=== PATIENT | female | born 1950 | race Caucasian/White ===

== ENCOUNTER 2016-12-01 09:05 | Day surgery (SDC) | payer MEDICARE ==
[~2016-12-01] VITALS: Ht 172.7 cm; Wt 82.5 kg
[~2016-12-01 09:05] MED LIST: ASCO100T11 PO; CALC-467 PO; ESTR1TAB24 PO; LOVA10TA PO; MULT-1007 PO; OMEG1CAP25 PO; [UNRECOGNIZED DRUG - CODE] PO
[2016-12-01 09:41] VITALS: BP 134/76; PULSE 82; RESP 16; O2SAT 98
[2016-12-01] MEDS ORDERED: MONT10TA20 PO (09:41)
[2016-12-01] MEDS ORDERED: LEVO75TA4 PO (09:41)
[2016-12-01] MEDS ORDERED: ALBU8.5H2 INHALATION (09:54)
[2016-12-01] MEDS ORDERED: 0.9% Sodium Chloride 1,000 ML IV PRN (10:21)
[2016-12-01] MEDS ORDERED: Sodium Chloride LOK Flush 10 mL Syringe IV PRN (10:25)
[2016-12-01] MEDS ORDERED: fentaNYL-PF 50 mCg/mL 2 mL Inj IVPUSH PRN (10:25)
[2016-12-01 10:56] VITALS: BP 121/62; PULSE 65; RESP 16; O2SAT 99
[2016-12-01 11:09] VITALS: BP 119/66; PULSE 70; RESP 14; O2SAT 96
[2016-12-01 11:15] VITALS: BP 143/76; PULSE 68; RESP 14; O2SAT 100
--- NOTE | 2016-12-01 11:24 | ENDO ---
[address] [address] ENDOSCOPY PROCEDURE PATIENT: DENISE DENIS : 1950 MR#: [id number] ADMIT: 12/01/2016 JOB ID: [id number] DATE OF SERVICE: 12/01/2016 PROCEDURE PERFORMED: Colonoscopy. INDICATIONS: Screening. ASA CLASSIFICATION: The patient's ASA classification is II. MALLAMPATI SCORE: Mallampati score was 2. MEDICATIONS: 1. Versed 5 mg. 2. Fentanyl 100 mcg. INSTRUMENT USED: PCF-H180AL. PREPARATION QUALITY: Poor. PROCEDURE DETAILS: After informed consent was obtained, the patient was brought into the GI suite, where she was placed on oxygen via nasal cannula and monitored with continuous pulse oximeter, telemetry and blood pressure monitoring. A time-out was performed. Then, she was placed in the left lateral decubitus position and medications were administered for sedation. Digital rectal exam was performed which was unremarkable. The colonoscope was then inserted into the rectum and advanced under direct visualization to the cecum, which was identified by the presence of the ileocecal valve and appendiceal orifice. Once the cecum was reached, the colonoscope was withdrawn back into the rectum, as the mucosa and lumen were examined. In the rectum, retroflexion was performed. Following retroflexion, remaining air in the rectum was suctioned, and procedure was completed. FINDINGS: 1. There was semi-solid stool scattered throughout the entire colon. Upon suctioning, our suction channel did become clogged requiring irrigation of the suction channel. 2. In the cecum there was an approximately 5-mm, flat polyp that was removed with cold biopsy forceps. The colonoscope was then withdrawn back into the rectum as the mucosa and lumen were examined. Visualization was suboptimal secondary to the poor prep. 3. Retroflexed views in the rectum were unremarkable. IMPRESSION: 1. Cecal polyp. 2. Poor prep. RECOMMENDATIONS: Repeat colonoscopy with two day prep. COMPLICATIONS: None. ESTIMATED BLOOD LOSS: Less than 5 mL.
--- NOTE | 2016-12-05 13:32 | PATH ---
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 ICD10 D12.0 GROSS DESCRIPTION: The specimen is received in one formalin filled container labeled with the patient's name, sublabeled "cecal polyp x1" and consists of 3 portions of tissue which aggregate to 0.3 x 0.3 x 0.2 CM. The specimen is entirely submitted in one cassette. 12/01/2016 [facility] ICD-9 CODES: CPT CODES: 1: 62385 Electronically Signed Out Myke Gillette MD Merged With [facility] Pathology [facility], [place] [address] Technical component performed at [facility], [facility] [address], [place], [address]
== END 2016-12-01 23:59 | disposition home or self-care (01) ==
LOC: END 09:05
PROVIDERS: ATTEND Internal Medicine Gastroenterology
DX: Z12.11 Encounter for screening for malignant neoplasm of colon (principal); D12.0 Benign neoplasm of cecum; F17.210 Nicotine dependence, cigarettes, uncomplicated; Z79.899 Other long term (current) drug therapy
CPT/HCPCS: 45380; G0500; J2250; J7030

== ENCOUNTER 2017-01-06 12:38 | Day surgery (SDC) | payer MEDICARE ==
[~2017-01-06] VITALS: Ht 172.7 cm; Wt 81.7 kg
[~2017-01-06 12:38] MED LIST changes: +0.9% Sodium Chloride 1,000 ML IV SCH; +ALBU8.5H2 INHALATION; +LEVO75TA4 PO; +MONT10TA20 PO; +Sodium Chloride LOK Flush 10 mL Syringe IV PRN; +fentaNYL-PF 50 mCg/mL 2 mL Inj IVPUSH PRN
[2017-01-06] MEDS ORDERED: ATRV10T PO (13:34)
[2017-01-06] MEDS ORDERED: IRON18TA PO (13:34)
[2017-01-06 13:35] VITALS: BP 145/78; PULSE 71; RESP 16; O2SAT 99
[2017-01-06 14:51] VITALS: BP 121/64; PULSE 65; RESP 15; O2SAT 100
[2017-01-06 15:00] VITALS: BP 127/66; PULSE 62; RESP 15; O2SAT 100
--- NOTE | 2017-01-06 15:00 | ENDO ---
[address] [address] ENDOSCOPY PROCEDURE PATIENT: DENISE DENIS : 1950 MR#: [id number] ADMIT: 01/06/2017 JOB ID: [id number] PROCEDURE: Colonoscopy. INDICATION: Screening. ANESTHESIA: Patient's ASA classification is two. Mallampati score is two. MEDICATIONS: 1. Versed 4 mg. 2. Fentanyl 100 mcg. INSTRUMENT USED: PCF-H180AL. PREPARATION QUALITY: Fair. PROCEDURE DETAILS: After informed consent was obtained, the patient was brought to the GI suite where she was placed on oxygen via nasal cannula and monitored with continuous pulse oximeter, telemetry, and blood pressure monitoring. A time-out was performed, then she was placed in the left lateral decubitus position and medications were administered for sedation. A digital rectal exam was performed, which was unremarkable except for external hemorrhoids. The colonoscope was then inserted into the rectum and advanced under direct visualization to the cecum, which identified by the presence of the ileocecal valve and appendiceal orifice. Once the cecum was reached, the colonoscope was withdrawn back into the rectum as the mucosa and lumen were examined. In the rectum, retroflexion was performed. Following retroflexion, remaining air in the rectum was suctioned and the procedure was completed. FINDINGS: In the sigmoid colon, there was a diminutive polyp that was removed with cold biopsy forceps. IMPRESSION: Sigmoid polyp. RECOMMENDATIONS: Repeat colonoscopy pending polyp pathology results. COMPLICATIONS: None. ESTIMATED BLOOD LOSS: Less than 5 mL.
--- NOTE | 2017-01-10 12:42 | PATH ---
SURGICAL PATHOLOGY Attending Physician:Dwaine Levine CASE STATUS: Signed Out PATIENT NAME: DENISE DENIS PID: [id number] : 1950 DATE COLLECTED:01/06/2017 00:00 SPECIMEN: Colon, Biopsy CLINICAL HISTORY: 1). SIGMOID COLON POLYP FINAL DIAGNOSIS: 1.SIGMOID COLON POLYP: HYPERPLASTIC POLYP. ICD10 CODE D12.6 GROSS DESCRIPTION: The specimen is received in one formalin filled container labeled with the patient's name, sublabeled "sigmoid colon polyp" and consists of a 0.2 x 0.2 x 0.2 CM portion of tissue which is entirely submitted in one cassette. 01/07/2017 [facility] MI[facility] DESCRIPTION: See diagnosis. ICD-9 CODES: CPT CODES: 1: 83398 Electronically Signed Out Chong Tsai MD [facility] Pathology [facility] [address], [place] [address] Technical component performed at [facility], [address] [place] [address] [address], [place], [address]
== END 2017-01-06 23:59 | disposition home or self-care (01) ==
LOC: END 12:38
PROVIDERS: ATTEND Internal Medicine Gastroenterology
DX: Z12.11 Encounter for screening for malignant neoplasm of colon (principal); K63.5 Polyp of colon; K64.4 Residual hemorrhoidal skin tags; Z79.890 Hormone replacement therapy
CPT/HCPCS: 45380; 88305; G0500; J2250; J3010; J7030

== ENCOUNTER 2017-06-29 07:34 | Emergency (ER) | payer MEDICARE ==
[~2017-06-29] VITALS: Ht 172.7 cm; Wt 83.6 kg
[~2017-06-29 07:34] MED LIST changes: -0.9% Sodium Chloride 1,000 ML IV SCH; +ATRV10T PO; +IRON18TA PO; -LOVA10TA PO; -OMEG1CAP25 PO; -Sodium Chloride LOK Flush 10 mL Syringe IV PRN; -[UNRECOGNIZED DRUG - CODE] PO; -fentaNYL-PF 50 mCg/mL 2 mL Inj IVPUSH PRN
[2017-06-29 07:36] VITALS: BP 160/62; PULSE 74; RESP 11; O2SAT 100
--- NOTE | 2017-06-29 07:39 | ED.REPORT ---
HPI-Extremity Problem Lower Date of Service Jun 29, 2017 ED Provider: Griselda Garcia MD Patient is a 67 year old female with a hx of bilateral total hip replacements and frequent hip dislocations who presents to the ED via EMS s/p dislocating her R hip in her sleep just prior to arrival. She has dislocated her hips 5 times now with successful reductions in the ED. She denies numbness, tingling, or any other symptoms. Her orthopedic surgeon is Dr. Gibbons. Her original surgery was in 2000. Patient's last dislocation was in February of 2016. She has not eaten yet this morning. Nursing Notes Stated Complaint: RT HIP DISLOCATION Chief Complaint: Extremity Trauma Nursing Notes Reviewed: Yes Allergies: Coded Allergies: TAPE (Verified Allergy, Severe, REDNESS, BLISTERS, 01/06/17) morphine (Verified Allergy, Severe, N&V, 01/06/17) hydrocodone (Verified Allergy, Intermediate, HALLUCINATES, 01/06/17) Scheduled Ascorbic Acid (Vitamin C) 100 Mg Tablet 100 MG PO BID Atorvastatin (Lipitor) 10 Mg Tab 10 MG PO DAILY Calcium Carbonate/Vitamin D3 (Calcarb 600 W-Vitamin D Tab) 1 Each Tablet 1 EACH PO BID Estradiol (Estradiol) 1 Mg Tablet 0.5 MG PO DAILY Iron (Iron) 18 Mg Tablet 2 TAB PO DAILY Levothyroxine (Levothyroxine) 75 Mcg Tablet 75 MCG PO DAILY Montelukast (Singulair) 10 Mg Tablet 10 MG PO HS Multivitamin (Multi-Vitamin Daily) 1 Each Tablet 1 EACH PO DAILY Scheduled PRN Albuterol HFA (Proair HFA) 8.5 Gm Hfa.aer.ad 2 PUFFS INHALATION Q4H PRN PRN For Shortness of Breath General Time Seen by MD: 07:38 Chief Complaint Hip injury right Hx Obtained From: Patient, Spouse Arrived By: Ambulance Onset Occurred: Just prior to arrival Location: : Hip right Quality: Painful Immunizations: Unknown Recent Healthcare: No recent doctor visit, No recent hospitalization Similar Sx Previous: Yes Past Medical History Past Medical History frequent hip dislocations Reports: Asthma, Hyperlipidemia Past Surgical History Breast cyst excision T&A L great toes Bilat total hip replacements Reports: Cataract surgery, Hysterectomy Family History noncontributory Smoking History Current Every Day Smoker Social History Alcohol Use: "Social" Drug Use: Denies drug use Other Social History: Good social support, Ambulatory Status Independent Review of Systems Review of Systems Note: -tingling Musculoskeletal: Reports: Joint pain, Denies: Back pain, Neck pain Neurologic: Denies: Numbness Complete sys rev & neg: except as marked. Physical Exam Initial Vital Signs Vital Signs (First) Date Time Temp Pulse Resp B/P Pulse Ox O2 Delivery O2 Flow Rate FiO2 06/29/17 07:36 36.1 74 11 160/62 100 Room Air Initial VS: Reviewed, Vital signs abnormal Head / Eyes: Atraumatic, Normocephalic Neck: Supple, Non-tender, Full range of motion Abdomen / GI: Soft, No distention Skin: Warm, Dry Neurologic: Alert, Oriented, Nonfocal Psychiatric: Mood/affect normal, Behavior normal, Normal thought content Lower Extremity / Pelvis / MS: Neurologic intact, Vascular intact No bruising R hip flexed, R knee flexed, what feels like posterior hip dislocation deformity. Ankle / Foot: Atraumatic, Inspection NL, Neurologic intact, Vascular intact General/Constitutional: Awake, Alert Respiratory / Chest: Atraumatic, Breath sounds NL, Breath sounds = bilat, No respiratory distress Cardiovascular: Heart rate NL, Regular rhythm, Heart sounds NL Interpretation & Diagnostics X-Ray Interpretation Xray Interpretation: posterior dislocated R hip replacement X-Ray Ordered: Hip right Interpretation / Wet Read by: Wet read ED physician Xray Interpretation: R hip dislocation reduced X-Ray Ordered: Hip right Interpretation / Wet Read by: Wet read ED physician Procedures Proced Mod Sedation/Analgesia Physician left room at 0835. Respiratory therapy still in attendance Time: 08:25 Procedure Performed by: ED physician Sedation Time: 16 - 30 min Consent / Setup: Informed consent provided, Consent from spouse (pt had already recieved narcotics), Time-out performed, Hand hygiene observed, Position supine Indication: Hip reduction Preparation: case packer and sealer applied, Pulse oximeter applied, Constant attendance, IV access established, Eval last meal time, Supplemental oxygen, Procedure explained, Suction available, End tidal CO2 mon applied VS Prior to Procedure: All vital signs normal Mallampati: Class & Anatomy: 2 top tonsil/uvula/palate Airway Exam: Normal facial anatomy CVS/Resp Exam: Normal breath sounds, Normal heart sounds Neuro Exam: Alert Sedation: Sedation: Propofol (100mg) ASA Classification: 1 normal healthy patient Response During Procedure: Handled secretions adeq, Maintained airway well, Oxygenation stable, Sedation appropriate, Vital signs stable Complications During/After: None, Apnea (breifly post reduction. Responded nicely to assisted breathing for about 2 minutes. Sats >90% entire time) Reversal: None required Mental Status After Procedure: Alert, Oriented X3 Post-Procedure: Alert prior to discharge, Vital signs normal Attestation: I performed procedure, I performed sedation Reduction Post Dislocation Hip Time: 08:28 Procedure Performed by: ED physician Consent / Timeout / Setup: Informed consent provided, Consent from patient, Time-out performed, Oxygen administered, Pulse oximeter applied, case packer and sealer applied, Hand hygiene observed Procedural Sedation/Analgesia: Sedation: Propofol (100mg) Which Hip and Technique: Right hip, Allis technique Neurovascular: Intact pre-procedure, Intact post-procedure Post-Procedure / Complications: Reduced per examination, Procedure successful, X-ray disloc reduced, Condition improved, Tolerated procedure well, Patient stable Splint Application - Fx Mgt Splint Application- Fx Mgt: R knee immobilizer - long leg Time: 08:33 Procedure Performed by: Manager Telemarketing Precise Anatomic Location: R knee Post-Procedure / Complications: Cap refill normal, Post splint vascular nl, Post splint neuro nl, Condition improved, Tolerated procedure well, Patient stable Splint Post-Application Eval Extremity Condition: Cap refill < 2 sec, Distal sensation intact, Distal motor Intact, No compartment syndrome Re-Eval/Medical Decision Med Decision/Clinical Course records reviewed: 02/2016 relocation in the ER used a total of 100mg propofol (40/20/20/20/20/20) This procedure today used 40 mg 40 mg and 20 mg. This was very effective for sedation hip was easily reduced and a brief bit of help with oxygenation was needed. X-rays reveal hip is relocated. Long-leg splint is placed. She will be given crutches. Follow-up with Dr. Gibbons Re-Evaluation/Progress #1: Time of Eval: 08:24 Re-Evaluation/Progress Note: Rececked pt who is doing well. explained procedure and obtained consent. Re-Evaluation/Progress #2: Time of Eval: 08:40 Re-Evaluation/Progress Note: Discussed plan for discharge. Patient understands and agrees with plan. All questions addressed at this time. Consultation : Referral / Consult Name: Shakir Sosa MD Consulted With: Orthopedic Call Returned at: 08:10 Sales And Operations Trainee: Agrees with eval, Agrees with plan Note: Discussed pt's case and plan to attempt reduction in ED. Counseled Regarding: Diagnosis, Lab results, Need for follow-up, When/why to return to ED Discharge & Departure Impression: Primary Impression: Hip dislocation, right Encounter type: initial encounter Qualified Code: S73.004A - Unspecified dislocation of right hip, initial encounter Additional Impression: Recurrent dislocation of hip joint prosthesis Encounter type: initial encounter Qualified Code: T84.029A - Dislocation of unspecified internal joint prosthesis, initial encounter Disposition: Home Discharge Condition All VS Reviewed: Yes Condition: Improved Patient Instructions: Hip Dislocation (ED) Additional Instructions: Thank you for coming to the emergency department. I am sorry that you dislocated your hip again. Wear the knee immobilizer provided at all times (including in bed) until you can follow up with Dr. Gibbons. Use crutches for stability and to prevent you from falling. Call Dr Gibbons this afternoon to schedule an appointment to discuss recurrent dislocations. Good luck with your new home construction! Referrals: Ana Navarro (PCP) Davidibe Attestation Portions of this note were transcribed by Teddy Mejia. I, Dr. Garcia personally performed the history, physical exam and medical decision-making; I reviewed and confirmed the accuracy of the information in the transcribed note. Signed: Deidre Baumann, 06/29/17 copies to: Ana Navarro; Gregorio Gibbons MD, Shawna L MD Jun 29, 2017 07:39 TEDDY MEJIA Jun 29, 2017 07:51
[2017-06-29] MEDS ORDERED: fentaNYL-PF 50 mCg/mL 2 mL Inj IVPUSH PRN (07:55)
[2017-06-29] MEDS ORDERED: Propofol 10 mg/mL 20 mL Inj ONE (08:11)
[2017-06-29] MEDS ORDERED: Propofol 10 mg/mL 20 mL Inj IVPUSH ONE (08:15)
--- NOTE | 2017-06-29 09:09 | DRSVH ---
PROCEDURE: X-RAY RIGHT HIP, ONE VIEW ([id number]) INDICATIONS: post relocation TECHNIQUE: 1 views of the hip were acquired. COMPARISON: [facility], CR, XR PELVIS W LATERAL HIP RT, 02/18/2016, 13:40. [facility], CR, XR HIP 2VW RT, 02/18/2016, 14:36. [facility], CR, HIP 1VW (RT), 03/02/2015, 17:33. [facility], CR, XR HIP 2VW RT, 06/29/2017, 7:53. FINDINGS: Bones: Right hip dislocation reduced. The right hip prosthesis in anatomic alignment. No fractures. No suspicious bony lesions. The visualized pelvic ring appears intact. Soft tissues: No suspicious soft tissue calcifications or masses. IMPRESSION: Right hip dislocation reduced. Dictated by: Stella Leach M.D. on 06/29/2017 at 9:05 Approved by: Stella Leach M.D. on 06/29/2017 at 9:07
--- NOTE | 2017-06-29 09:28 | DRSVH ---
PROCEDURE: X-RAY RIGHT HIP COMPLETE, MINIMUM TWO VIEWS ([id number]) INDICATIONS: dislocation hip TECHNIQUE: 2 view(s) of the hip acquired. COMPARISON: [facility], CR, XR HIP 2VW RT, 02/18/2016, 14:36. FINDINGS: Bones: Patient is status post left hip arthroplasty, with superior lateral and posterior dislocation of the femoral component relative to the acetabulum. No definite periprosthetic fracture seen. Soft tissues: Overlying postoperative changes are noted. No suspicious soft tissue densities. IMPRESSION: Superior lateral and posterior dislocation of the right hip. Dictated by: Chuck STONER Interpreted: Lainey Swain MD on 06/29/2017 at 8:25 Approved by: Lainey Swain M.D. on 06/29/2017 at 9:26
[2017-06-29 09:52] VITALS: BP 132/72; PULSE 78; O2SAT 100
== END 2017-06-29 09:55 | disposition home or self-care (01) ==
LOC: SED 07:34
DX: T84.020A Dislocation of internal right hip prosthesis, initial encounter (principal); X58.XXXA Exposure to other specified factors, initial encounter; Y93.84 Activity, sleeping; Y92.009 Unspecified place in unspecified non-institutional (private) residence as the place of occurrence of the external cause; Y99.8 Other external cause status; J45.909 Unspecified asthma, uncomplicated; E78.5 Hyperlipidemia, unspecified; F17.200 Nicotine dependence, unspecified, uncomplicated; Z88.5 Allergy status to narcotic agent; Z96.643 Presence of artificial hip joint, bilateral
CPT/HCPCS: 27265; 73501; 73502; 94770; 94799; 96374; 99152; 99285; J2704; J3010